=== PATIENT | female | born 1955 | race Caucasian/White ===

== ENCOUNTER 2022-09-18 06:03 | Inpatient (IN) ==
[2022-09-11 11:47] LABS: Basophils # 0.1 10*3/uL (0.0-0.2); Eosinophils # 0.4 10*3/uL (0.0-0.87); Eosinophils % 4.4 % (0.00-10.9); Hematocrit 37.9 VOL% (35.7-47.0); Hemoglobin 12.7 GM/DL (12.0-16.0); Immature Granulocytes % 0.4 %; Immature Granulocytes Absolute 0.03 #; Lymphocytes # 2.4 10*3/uL (1.4-4.0); Lymphocytes % 29.1 % (21.3-54.2); Mean Corpuscular HGB Conc 33.5 GM/DL (32-36); Mean Corpuscular Volume 103.6 FL (87-102); Mean Platelet Volume 11.3 FL (9.6-12.0); Monocytes # 0.7 10*3/uL (0.11-0.8); Monocytes % 8.4 % (1.7-12.7); Neutrophils % 56.7 % (38.7-73.9); Platelet Count 197 T/CUMM (130-400); Red Blood Count 3.66 MC/CUMM (3.8-5.5); Red Cell Distribution Width 12.1 % (9.3-17.3); White Blood Count 8.2 T/CUMM (4-12)
[2022-09-11 11:58] LABS: Glucose,Urine (UA) Negative (Negative); Hyaline Casts,Urine 67 /LPF (0-3); Ketones,Urine Trace mg/dL (Negative); Mucus,Urine Occasional /LPF (Occasional); Nitrite,Urine Negative (Negative); Protein,Urine Negative (Negative); RBC,Urine 6 /HPF (0-4); Squamous Epithelial Cell,Urine Occasional /HPF (0-10); Urine Appearance Clear (Clear); Urine Color Yellow (Yellow); Urine pH 5.5 (4.5-8.0)
[2022-09-11 11:59] LABS: Bilirubin,Urine Negative (Negative); Blood, Urine Trace mg/dL (Negative); INR 0.9; PT Patient Result 10.5 SECS (10.1-12.1); Partial Thromboplastin Time 24.2 SECS (23.7-32.9); Urine Urobilinogen 0.2 eU/dL (<2.0)
[2022-09-11 12:15] LABS: Alanine Aminotransferase 28 U/L (13-56); Albumin 3.7 G/DL (3.4-5.0); Alkaline Phosphatase 141 U/L (45-117); Aspartate Amino Transferase 21 U/L (0-37); Bilirubin,Total < 0.39 MG/DL (0.20-1.00); Blood Urea Nitrogen 28 MG/DL (7-18); Calcium 11.2 MG/DL (8.5-10.1); Carbon Dioxide 25 MMOL/L (21-32); Chloride 108 MMOL/L (98-107); Glucose 103 MG/DL (74-106); Osmolality,Calculated 284.4 MOS/KG (273-304); Potassium 4.7 MMOL/L (3.5-5.1); Sodium 140 MMOL/L (136-145); Total Protein 6.1 G/DL (6.4-8.2)
[~2022-09-18 06:03] MED LIST: VANCOMYCIN INJ 1,000 MG in SODIUM CHLORIDE 0.9% 250 ML IV ONE
[2022-09-18] MEDS ORDERED: ACETAMINOPHEN 500 MG TABLET PO ONE (06:44)
[2022-09-18] MEDS ORDERED: DIAZEPAM 5 MG TABLET PO ONE (06:44)
[2022-09-18] MEDS ORDERED: GABAPENTIN 400 MG CAPSULE PO ONE (06:44)
[2022-09-18] MEDS ORDERED: LACTATED RINGERS 1,000 ML IV SCH (07:30)
[2022-09-18] MEDS ORDERED: DEXAMETHASONE 4 MG/1 ML VIAL ONE (09:32)
[2022-09-18] MEDS ORDERED: ROPIVACAINE 0.5% 30 ML VIAL ONE (09:32)
[2022-09-18] MEDS ORDERED: LIDOCAINE 1% 5 ML VIAL ONE (09:33)
[2022-09-18] MEDS ORDERED: MIDAZOLAM 2 MG/2 ML VIAL ONE (09:40)
[2022-09-18] MEDS ORDERED: BACITRACIN OINT 0.9 GM PACK TOP ONE (09:51)
[2022-09-18] MEDS ORDERED: TRANEXAMIC ACID 1,000 MG/10 ML VIAL ONE (09:54)
[2022-09-18] MEDS ORDERED: buprenorphine HCL 0.3 MG/ML VIAL ONE (10:23)
[2022-09-18] MEDS ORDERED: ePHEDrine 50 MG/ML VIAL ONE (10:24)
[2022-09-18] MEDS ORDERED: ONDANSETRON 4 MG/2 ML VIAL ONE (10:51)
[2022-09-18] MEDS ORDERED: propofoL 200 MG/20 ML VIAL IV ONE (11:03)
[2022-09-18] MEDS ORDERED: ONDANSETRON 4 MG TABLET PO PRN (11:54)
[2022-09-18] MEDS ORDERED: METHOCARBAMOL 500 MG TABLET PO PRN (11:54)
[2022-09-18] MEDS ORDERED: ALBUTEROL 2.5 MG/3 ML NEB RESP TX PRN (11:54)
[2022-09-18] MEDS ORDERED: BUTALBITAL/ACETAMIN/CAFFEINE 50-325-40 MG TABLET PO PRN (11:54)
[2022-09-18] MEDS ORDERED: ALUMINUM/MAGNES/SIMETH MAX STR 30 ML UDCUP PO PRN (11:54)
[2022-09-18] MEDS ORDERED: LOPERAMIDE 2 MG CAPSULE PO PRN (11:54)
[2022-09-18] MEDS ORDERED: diphenhydrAMINE CAP 25 MG CAPSULE PO PRN (11:57)
[2022-09-18] MEDS ORDERED: MAGNESIUM HYDROXIDE SUSP 30 ML UDCUP PO PRN (11:57)
[2022-09-18] MEDS ORDERED: HYDROmorphone 1 MG/1 ML SYRINGE IV PRN (12:38)
[2022-09-18] MEDS: LACTATED RINGERS 1,000 ML IV SCH ×2 (13:37→19:07)
[2022-09-18] MEDS: DICYCLOMINE 10 MG CAPSULE PO SCH ×2 (15:39→20:43)
[2022-09-18] MEDS: busPIRone 10 MG TABLET PO SCH ×2 (15:39→20:42)
[2022-09-18] MEDS: ceFAZolin 2,000 MG/50 ML DUPLEX IV SCH (15:40)
[2022-09-18] MEDS: HYDROmorphone 1 MG/1 ML SYRINGE IV PRN (15:44)
[2022-09-18] MEDS: POLYVINYL 0.5%/POVIDONE 0.6% OPH SOLN 15 ML BOTTLE BOTH EYES SCH ×2 (17:39→20:45)
[2022-09-18] MEDS: QUEtiapine 25 MG TABLET PO SCH (20:42)
[2022-09-18] MEDS: DOCUSATE SODIUM 100 MG CAPSULE PO SCH (20:43)
[2022-09-18] MEDS: FAMOTIDINE 20 MG TABLET PO SCH (20:43)
[2022-09-18] MEDS: MINERAL OIL/PETROLATUM OPH OINT 3.5 GM TUBE BOTH EYES SCH (20:45)
[2022-09-19] MEDS: ceFAZolin 2,000 MG/50 ML DUPLEX IV SCH (00:35)
[2022-09-19] MEDS: HYDROmorphone 1 MG/1 ML SYRINGE IV PRN ×4 (01:58→21:12)
[2022-09-19] MEDS: LACTATED RINGERS 1,000 ML IV SCH (03:09)
[2022-09-19 04:34] LABS: Basophils % 0.3 % (0.0-0.8); Eosinophils % 0.4 % (0.00-10.9); Hematocrit 29.9 VOL% (35.7-47.0); Hemoglobin 9.7 GM/DL (12.0-16.0); Immature Granulocytes % 0.3 %; Immature Granulocytes Absolute 0.02 #; Lymphocytes # 1.1 10*3/uL (1.4-4.0); Mean Corpuscular HGB Conc 32.4 GM/DL (32-36); Mean Corpuscular Volume 105.3 FL (87-102); Mean Platelet Volume 11.7 FL (9.6-12.0); Monocytes % 13.6 % (1.7-12.7); Neutrophils % 69.4 % (38.7-73.9); Platelet Count 126 T/CUMM (130-400); Red Blood Count 2.84 MC/CUMM (3.8-5.5); Red Cell Distribution Width 12.1 % (9.3-17.3); White Blood Count 7.1 T/CUMM (4-12)
[2022-09-19 05:05] LABS: Calcium 10.2 MG/DL (8.5-10.1); Osmolality,Calculated 281.5 MOS/KG (273-304); Potassium 3.7 MMOL/L (3.5-5.1)
[2022-09-19] MEDS: FONDAPARINUX 2.5 MG/0.5 ML SYRINGE SUBCUT SCH (05:33)
[2022-09-19] MEDS: ATORVASTATIN 20 MG TABLET PO SCH (08:37)
[2022-09-19] MEDS: ASPIRIN EC 81 MG TABLET PO SCH (08:37)
[2022-09-19] MEDS: FERROUS SULFATE 325 MG TABLET PO SCH (08:38)
[2022-09-19] MEDS: PANTOPRAZOLE 40 MG TABLET PO SCH (08:38)
[2022-09-19] MEDS: ESCITALOPRAM 10 MG TABLET PO SCH (08:38)
[2022-09-19] MEDS: FAMOTIDINE 20 MG TABLET PO SCH ×2 (08:38→21:11)
[2022-09-19] MEDS: LISINOPRIL/HCTZ 10-12.5 MG TABLET PO SCH (08:38)
[2022-09-19] MEDS: DICYCLOMINE 10 MG CAPSULE PO SCH ×3 (08:38→21:11)
[2022-09-19] MEDS: busPIRone 10 MG TABLET PO SCH ×3 (08:38→21:11)
[2022-09-19] MEDS: DOCUSATE SODIUM 100 MG CAPSULE PO SCH ×2 (08:38→21:11)
[2022-09-19] MEDS: MAGNESIUM OXIDE 400 MG TABLET PO SCH (08:38)
[2022-09-19] MEDS: POLYVINYL 0.5%/POVIDONE 0.6% OPH SOLN 15 ML BOTTLE BOTH EYES SCH ×4 (08:40→21:12)
[2022-09-19] MEDS: ONDANSETRON 4 MG/2 ML VIAL IV PRN (18:23)
[2022-09-19] MEDS: QUEtiapine 25 MG TABLET PO SCH (21:11)
[2022-09-19] MEDS: MINERAL OIL/PETROLATUM OPH OINT 3.5 GM TUBE BOTH EYES SCH (22:28)
[2022-09-20] MEDS: HYDROmorphone 1 MG/1 ML SYRINGE IV PRN ×5 (04:29→20:36)
[2022-09-20 05:19] LABS: Basophils % 0.2 % (0.0-0.8); Eosinophils # 0.1 10*3/uL (0.0-0.87); Eosinophils % 1.2 % (0.00-10.9); Hematocrit 29.8 VOL% (35.7-47.0); Hemoglobin 9.9 GM/DL (12.0-16.0); Immature Granulocytes % 0.3 %; Immature Granulocytes Absolute 0.03 #; Lymphocytes # 1.6 10*3/uL (1.4-4.0); Lymphocytes % 18.1 % (21.3-54.2); Mean Corpuscular HGB Conc 33.2 GM/DL (32-36); Mean Corpuscular Volume 103.5 FL (87-102); Mean Platelet Volume 11.7 FL (9.6-12.0); Monocytes # 1.3 10*3/uL (0.11-0.8); Monocytes % 14.8 % (1.7-12.7); Neutrophils % 65.4 % (38.7-73.9); Platelet Count 133 T/CUMM (130-400); Red Blood Count 2.88 MC/CUMM (3.8-5.5); Red Cell Distribution Width 12.2 % (9.3-17.3); White Blood Count 8.8 T/CUMM (4-12)
[2022-09-20] MEDS: FONDAPARINUX 2.5 MG/0.5 ML SYRINGE SUBCUT SCH (06:23)
[2022-09-20] MEDS: LISINOPRIL/HCTZ 10-12.5 MG TABLET PO SCH (09:19)
[2022-09-20] MEDS: FAMOTIDINE 20 MG TABLET PO SCH ×2 (09:19→20:37)
[2022-09-20] MEDS: MAGNESIUM OXIDE 400 MG TABLET PO SCH (09:19)
[2022-09-20] MEDS: ASPIRIN EC 81 MG TABLET PO SCH (09:19)
[2022-09-20] MEDS: PANTOPRAZOLE 40 MG TABLET PO SCH (09:20)
[2022-09-20] MEDS: POLYVINYL 0.5%/POVIDONE 0.6% OPH SOLN 15 ML BOTTLE BOTH EYES SCH ×4 (09:20→20:38)
[2022-09-20] MEDS: ESCITALOPRAM 10 MG TABLET PO SCH (09:20)
[2022-09-20] MEDS: FERROUS SULFATE 325 MG TABLET PO SCH (09:20)
[2022-09-20] MEDS: ATORVASTATIN 20 MG TABLET PO SCH (09:20)
[2022-09-20] MEDS: DOCUSATE SODIUM 100 MG CAPSULE PO SCH ×2 (09:20→20:37)
[2022-09-20] MEDS: DICYCLOMINE 10 MG CAPSULE PO SCH ×3 (09:20→20:38)
[2022-09-20] MEDS: busPIRone 10 MG TABLET PO SCH ×3 (09:20→20:37)
[2022-09-20] MEDS: MINERAL OIL/PETROLATUM OPH OINT 3.5 GM TUBE BOTH EYES SCH (20:38)
[2022-09-20] MEDS: QUEtiapine 25 MG TABLET PO SCH (20:38)
[2022-09-20] MEDS: ONDANSETRON 4 MG/2 ML VIAL IV PRN (20:43)
[2022-09-21] MEDS: FONDAPARINUX 2.5 MG/0.5 ML SYRINGE SUBCUT SCH (05:06)
[2022-09-21 08:21] VITALS: BP 91/48
[2022-09-21] MEDS: LISINOPRIL/HCTZ 10-12.5 MG TABLET PO SCH (09:05)
[2022-09-21] MEDS: DOCUSATE SODIUM 100 MG CAPSULE PO SCH (09:05)
[2022-09-21] MEDS: ATORVASTATIN 20 MG TABLET PO SCH (09:05)
[2022-09-21] MEDS: FERROUS SULFATE 325 MG TABLET PO SCH (09:06)
[2022-09-21] MEDS: DICYCLOMINE 10 MG CAPSULE PO SCH (09:06)
[2022-09-21] MEDS: PANTOPRAZOLE 40 MG TABLET PO SCH (09:06)
[2022-09-21] MEDS: POLYVINYL 0.5%/POVIDONE 0.6% OPH SOLN 15 ML BOTTLE BOTH EYES SCH (09:06)
[2022-09-21] MEDS: ESCITALOPRAM 10 MG TABLET PO SCH (09:06)
[2022-09-21] MEDS: MAGNESIUM OXIDE 400 MG TABLET PO SCH (09:06)
[2022-09-21] MEDS: busPIRone 10 MG TABLET PO SCH (09:06)
[2022-09-21] MEDS: ASPIRIN EC 81 MG TABLET PO SCH (09:06)
[2022-09-21] MEDS: FAMOTIDINE 20 MG TABLET PO SCH (09:06)
[2022-09-22] MEDS ORDERED: CHOLECALCIFEROL 1,000 UNIT TABLET PO SCH (12:00)
== END 2022-09-21 10:40 | DRG 470 ==
LOC: N.OR 06:03 → N.SDSINP 06:04 → N.3E 11:57
PROVIDERS: ADMIT Orthopaedic Surgery; ATTEND Orthopaedic Surgery